=== PATIENT | female | born 1995 | race Caucasian/White ===

== ENCOUNTER 2016-12-06 06:12 | Inpatient (IN) | payer OTHER ==
[2016-12-06] MEDS ORDERED: ELECTROLYTE-148 SOLN 500 ML IV ONE (08:55)
--- NOTE | 2016-12-06 09:04 | HP ---
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: No: Alzheimer's, CVA, Dementia, Migraine, Multiple Sclerosis, Peripheral Neuropathy, Parkinson's, Seizure, Syncope, TIA, Vertigo, Other Cardiovascular: No: AFIB, Aneurysm, Aortic Insufficiency, Aortic Stenosis, CAD, CHF, Deep Vein Thrombosis, HTN, Hyperlipdemia, [place], Mitral Insufficiency, Mitral Stenosis, Murmur, Pulmonary Hypertension, Other Pulmonary: No: Asthma, Bronchitis, Cancer, COPD, O2 Dependent, Pneumonia, Previously Intubated, Pulmonary Embolus, Pulmonary Fibrosis, Sleep Apnea, Other Hepatobiliary: No: Cirrhosis, Cholelithiasis, Cholecystitis, Choledocholithiasis , Hepatitis A, Hepatitis B, Hepatitis C, Other Renal/: No: Renal Failure, Renal Inusuff, BPH, Cancer, Hematuria, Hemodialysis , Neurogenic Bladder, Renal Calculi, UTI, Other Reproductive: No: Ectopic , Endometriosis, Fibroids, PID, Polycystic Ovary Syndrome, Postmenopausal, Other ...: 2 ...Para: 1 Heme/Onc: No: Anemia, B12 Deficiency, Bleeding Disorder, Cancer, Current Chemotherapy, Current Radiation Therapy, Hemochromatosis, Hypercoaguable State, Myeloproliferative Synd, Sickle Cell Disease, Sickle Cell Trait, Thrombocytopenia, Other Infectious Disease: No: AIDS, C-Diff, Herpes Zoster, HIV, MRSA, STD's, Tuberculosis, VREF, Other Psych: No: Addictions, Anxiety, Bipolar, Depression, Panic, Psychosis, Schizophrenia, Other Musculoskeletal: No: Bursitis, Chronic low back pain, Hemiparesis, Hemiplegia, Osteoarthritis, Paraplegia, Other ENT: No: Allergic Rhinitis, Sinusitis, Other Dermatology: No: Basal Cell, Cellulitis, Eczema, Melanoma, Psoriasis, Squamous Cell, Other - Past Surgical History Past Surgical History: No: None, AAA Repair, AICD, Amputation, Appendectomy, Arthrosocopy, AV Fistula/Graft, Bariatric Surgery, Breast Biopsy, Bypass, CABG, Carotid Endarterectomy, Cataract Removal, Cholecystectomy, Colectomy, Colonoscopy, Colostomy, Craniotomy, , Cystectomy, Hernia Repair, Hysterectomy, Ileal Conduit, Ileosotomy, Joint Replacement, Kidney Transplant, Laminectomy, Liver Transplant, Mastectomy, Nephrectomy, Oopherectomy, Orchiectomy, Permanent Pacemaker, Prostatectomy, Splenectomy, Stent, Thoracotomy , TURP, Tonsillectomy, Tubal Ligation, Upper Endoscopy, Valve Replacement, Vasectomy, Vein Stripping/Ligation - Advance Directives Advance Directives: No: Living Will, Health Care Proxy, DNR, Organ Donor, Tissue Donor, MOLST - Alcohol/Substance Use History of Substance Use: denies: None, Cocaine, Heroin, Marijuana, Prescription , Tranquilizers - Social History Usual Living Arrangement: No: Alone, With Spouse, With Parent, With Significant Other, With Child, Assisted Living, [facility], Other Home Medications - Allergies Allergies/Adverse Reactions: Allergies Allergy/AdvReac Type Severity Reaction Status Date / Time No Known Allergies Allergy Verified 12/06/16 07:48 - Home Medications Home Medications: Ambulatory Orders Vitamins (Sjr) - 1 tab PO DAILY 12/04/16 Review of Systems - Review of Systems Constitutional: reports: No Symptoms Eyes: reports: No Symptoms HENT: reports: No Symptoms Neck: reports: No Symptoms Cardiovascular: reports: No Symptoms Respiratory: reports: No Symptoms Gastrointestinal: reports: No Symptoms Genitourinary: reports: No Symptoms Breasts: reports: No Symptoms Reported Musculoskeletal: reports: No Symptoms Integumentary: reports: No Symptoms Neurological: reports: No Symptoms Endocrine: reports: No Symptoms Hematology/Lymphatic: reports: No Symptoms Psychiatric: reports: No Symptoms Physical Examination Vital Signs: Vital Signs Temperature 98.1 F 12/06/16 06:50 Pulse Rate 101 H 12/06/16 06:50 Respiratory Rate 20 12/06/16 06:50 Blood Pressure 119/75 12/06/16 06:50 O2 Sat by Pulse Oximetry (%) Constitutional: Yes: Well Nourished Eyes: Yes: WNL HENT: Yes: WNL Neck: Yes: WNL Cardiovascular: Yes: WNL Respiratory: Yes: WNL Gastrointestinal: Yes: WNL ...Rectal Exam: Yes: WNL Renal/: Yes: WNL Breast(s): Yes: WNL Musculoskeletal: Yes: WNL Extremities: Yes: WNL Neurological: Yes: WNL ...Motor Strength: WNL Psychiatric: Yes: WNL Assessment/Plan as above admit labs request epidural
[2016-12-06 09:10] VITALS: BMI 33.7
[2016-12-06] MEDS: FENTANYL/BUPIVACAINE/NS/PF - PCEA - 50 ML DISP.SYRIN EP SCH ×2 (09:20→14:23)
[2016-12-06] MEDS: ELECTROLYTE-148 SOLN 1,000 ML IV SCH ×3 (09:45→18:17)
--- NOTE | 2016-12-06 12:11 | PN ---
Ante-Partal Exam - Subjective Vital Signs: Vital Signs Temperature 97.8 F 12/06/16 10:24 Pulse Rate 89 12/06/16 11:30 Respiratory Rate 20 12/06/16 11:30 Blood Pressure 110/46 12/06/16 11:30 O2 Sat by Pulse Oximetry (%) 99 12/06/16 11:30 Headache: No Visual changes: No Right upper quadrant pain: No - Contractions Contractions: Yes Regularity: Irregular Intensity: Mild Monitor Mode: External - Exam during Labor Heart Rate: 150 Variability: Minimal Heart Rate Location: Midline Category: I Monitor Accelerations: Present Monitor Decelerations: None Exam: Vaginal Dilatation (cm): 8 Effacement (%): 100 Amniotic Membrane Status: Intact Nitrazine Test: Positive Amniotic Fluid: Clear Presentation: Vertex Station: +1 - Assessment/Plan Assessment/Plan: as above has epidural continue care
--- NOTE | 2016-12-06 13:53 | PN ---
Progress Note (short form) - Note Progress Note: 9cm now, last check 2 hours and was 8, cat 1, q 3-5 mins
--- NOTE | 2016-12-06 14:24 | PN ---
Progress Note (short form) - Note Progress Note: cx 9 m . 100 vx 0 mr , fhr cat 1 . contraction regular
[2016-12-06] MEDS ORDERED: BENZOCAINE 20% 57 GM BOTTLE TP PRN (20:21)
[2016-12-06] MEDS ORDERED: BENZOCAINE 28 GM HEMORRHOIDAL OINTMENT TP PRN (20:21)
[2016-12-06] MEDS ORDERED: WITCH HAZEL 50% (TUCKS) 40 PAD/JAR PAD TP PRN (20:21)
[2016-12-06] MEDS ORDERED: METHYLERGONOVINE MALEATE 0.2 MG/1 ML AMP IM PRN (20:21)
[2016-12-06] MEDS ORDERED: BISACODYL 10 MG SUPP.RECT RC PRN (20:21)
[2016-12-06] MEDS ORDERED: oxyCODONE HCL 5 MG TABLET PO PRN (20:22)
[2016-12-06] MEDS ORDERED: D5W-LR W/ 20 UNITS OXYTOCIN 1,000 ML IV SCH (20:30)
[2016-12-06] MEDS: FERROUS SO4 325 MG TABLET (FP) PO SCH (22:28)
[2016-12-07 08:29] LABS: BASOPHIL 0.2 % (0-2.0); EOSINOPHIL 0.2 % (0-4.5); MCH 26.7 pg (25.7-33.7); MCHC 32.5 g/dl (32.0-36.0); MEAN CELL VOLUME 82.1 fl (80-96); MEAN PLT VOLUME 8.9 fl (7.5-11.1); NEUTROPHILS 82.2 % (42.8-82.8); PLATELET COUNT 177 K/MM3 (134-434); RDW 14.6 % (11.6-15.6); WHITE BLOOD COUNT 14.5 K/mm3 (4.0-10.0)
[2016-12-07] MEDS: FERROUS SO4 325 MG TABLET (FP) PO SCH ×2 (09:36→21:12)
[2016-12-07] MEDS: PRENATAL VITAMINS W/ FOLIC ACID TABLET (FP) PO SCH (09:36)
[2016-12-07] MEDS ORDERED: INFLUENZA VACCINE 45 MCG/0.5 ML (MDV 16-17) IM ONE (10:00)
[2016-12-07] MEDS ORDERED: DIPHTH,PERTUSS(ACELL),TET 0.5 ML DISP.SYRIN IM ONE (10:00)
[2016-12-07] MEDS ORDERED: INFLUENZA VACCINE 60 MCG/0.5 ML (P/F DISP.SYRIN 16-17) IM ONE (10:00)
--- NOTE | 2016-12-07 11:03 | PN ---
Progress Note (short form) - Note Progress Note: ppd 1 doing well, no c/o , no dizziness , no excess vaginal bleeding Last Vital Signs Temp Pulse Resp BP Pulse Ox 97.9 F 87 18 116/63 100 12/07/16 09:05 12/07/16 09:05 12/07/16 09:07 12/07/16 09:05 12/06/16 21:15 abdomen soft, non tender , no cva uterus firm, non tender lochia mid , no calf tenderness impression anemia, asymptomatic plan ambulate, iron vit CBC, BMP 12/07/16 07:45
[2016-12-07] MEDS: ACETAMINOPHEN 325 MG TABLET (FP) PO PRN (12:55)
[2016-12-07] MEDS: IBUPROFEN 600 MG TABLET (FP) PO PRN (12:56)
[2016-12-07] MEDS ORDERED: SENNOSIDES/DOCUSATE COMBO (SENNA PLUS) TABLET (UD) PO PRN (22:00)
--- NOTE | 2016-12-08 08:22 | PN ---
Post Progress Note - Subjective Subjective: no complains of dizziness Post Day: 2 Type of Delivery: Vital Signs: Vital Signs Temperature 98.7 F 12/07/16 21:45 Pulse Rate 80 12/07/16 21:45 Respiratory Rate 18 12/07/16 21:45 Blood Pressure 122/61 12/07/16 21:45 O2 Sat by Pulse Oximetry (%) 100 12/06/16 21:15 Breast Exam: Yes: Soft, Other (BF ). No: Engorged Uterus: Yes: Fundus Firm, Fundus below umbilicus, Non-tender Lochia: Yes: Rubra Lochia, amount: Moderate Extremities: Yes: Calves non-tender Perineum: Yes: Intact Activity: Ambulating - Labs Labs: CBC WBC 14.5 K/mm3 (4.0-10.0) H D 12/07/16 07:45 RBC 3.29 M/mm3 (3.60-5.2) L D 12/07/16 07:45 Hgb 8.8 GM/dL (10.7-15.3) L D 12/07/16 07:45 Hct 27.0 % (32.4-45.2) L D 12/07/16 07:45 MCV 82.1 fl (80-96) 12/07/16 07:45 MCHC 32.5 g/dl (32.0-36.0) 12/07/16 07:45 RDW 14.6 % (11.6-15.6) 12/07/16 07:45 Plt Count 177 K/MM3 (134-434) D 12/07/16 07:45 MPV 8.9 fl (7.5-11.1) 12/07/16 07:45 Neutrophils % 82.2 % (42.8-82.8) 12/07/16 07:45 Lymphocytes % 9.2 % (8-40) 12/07/16 07:45 Monocytes % 8.2 % (3.8-10.2) 12/07/16 07:45 Eosinophils % 0.2 % (0-4.5) D 12/07/16 07:45 Basophils % 0.2 % (0-2.0) 12/07/16 07:45 Assessment/Plan anemia stable plan : discharge today
[2016-12-08 09:45] VITALS: BP 107/57; PULSE 79; TEMP 97.6
[2016-12-08] MEDS: PRENATAL VITAMINS W/ FOLIC ACID TABLET (FP) PO SCH (10:22)
[2016-12-08] MEDS: FERROUS SO4 325 MG TABLET (FP) PO SCH (10:22)
[2016-12-08] MEDS: IBUPROFEN 600 MG TABLET (FP) PO PRN (10:22)
[2016-12-08] MEDS: ACETAMINOPHEN 325 MG TABLET (FP) PO PRN (10:22)
--- NOTE | 2016-12-14 21:21 | DS ---
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: Vital Signs Temperature 97.6 F 12/08/16 07:30 Pulse Rate 79 12/08/16 07:30 Respiratory Rate 18 12/08/16 07:30 Blood Pressure 107/57 12/08/16 07:30 O2 Sat by Pulse Oximetry (%) 100 12/06/16 21:15 Constitutional: Yes: Well Nourished, No Distress, Calm Eyes: Yes: WNL, Conjunctiva Clear, EOM Intact HENT: Yes: WNL, Atraumatic, Normocephalic Neck: Yes: WNL, Supple, Trachea Midline Cardiovascular: Yes: WNL, Regular Rate and Rhythm Respiratory: Yes: WNL, Regular, CTA Bilaterally Gastrointestinal: Yes: WNL ...Rectal Exam: Yes: WNL Renal/: Yes: WNL ....Post : Yes: Uterus firm, Uterus non-tender, Slight lochia rubra Breast(s): Yes: WNL Musculoskeletal: Yes: WNL Extremities: Yes: WNL Integumentary: Yes: WNL Neurological: Yes: WNL, Alert, Oriented ...Motor Strength: WNL Psychiatric: Yes: WNL, Alert, Oriented Labs: CBC, BMP 12/07/16 07:45 Delivery - Delivery Vaginal Delivery: Spontaneous (no complication) Type of Anesthesia: Local, Epidural Episiotomy/Laceration: Perineal Extension/lac, 1st degree EBL (cc): 300 Delivery, Single - Stages of Labor Date 1st Stage Initiatied: 12/06/16 Time 1st Stage Initiated: 04:00 Date 2nd Stage Initiated: 12/06/16 Time 2nd Stage Initiated: 19:10 Date of Delivery: 12/06/16 Time of Delivery: 20:00 Time Placenta Delivered: 20:05 Placenta: Yes: Spontaneous - Condition of Infant Tub Wash Operator/Journeyman Glazier Present: No Gender: Male Weight: 6 lb 11 oz Position: Left, OA Total Hours ROM (Hrs/Mins): 12HR-35MIN - 1 Minute Total Score: 9 5 Minutes Total Score: 9 - Feeding Plan Initial Plan: Exclusive throughout hospitalization Discharge Summary Reason For Visit: LABOR Procedures: Principal: Condition: Good - Instructions Diet, Activity, Other Instructions: regular diet, cont. pnv, iron , follow up [facility] care 4 weeks PLEASE FOLLOW UP WITH IN FOUR WEEKS PLEASE CALL FOR APPOINTMENT IF ANY HEAVY BLEEDING, FEVER, OR SEVERE PAIN CALL WARM LINE:[phone] Referrals: Brandin Adams MD [Staff Physician] - Disposition: HOME - Home Medications Comprehensive Discharge Medication List: Ambulatory Orders Vitamins (Sjr) - 1 tab PO DAILY 12/04/16 Ibuprofen [Motrin -] 600 mg PO QID #28 tablet 12/07/16
== END 2016-12-08 11:50 | disposition home or self-care (01) | DRG 560 ==
LOC: JDEL 06:12 → JLDR 08:35 → J3W 22:10
PROVIDERS: ADMIT Obstetrics & Gynecology; ATTEND Obstetrics & Gynecology
PROC: 10E0XZZ Delivery of Products of Conception, External Approach (ICD-10-PCS; principal; 2016-12-06)
DX: O99.013 Anemia complicating pregnancy, third trimester (principal); Z3A.38 38 weeks gestation of pregnancy; Z37.0 Single live birth
CPT/HCPCS: 36415; 59409; 85025; 86850; 86900; 86901